=== PATIENT | male | born 2000 | race Caucasian/White ===

== ENCOUNTER 2018-11-22 23:34 | Emergency (ER) | payer SELFPAY ==
--- NOTE | 2018-11-23 00:35 | ER ---
Nurse's Notes [facility] Name: Jonathan Rodriguez Age: 18 yrs Sex: Male : 2000 Arrival Date: 11/22/2018 Time: 23:41 Bed 26 Private MD: Diagnosis: Acute serous otitis media Presentation: 11/22 23:48 Presenting complaint: Patient states: i woke up this 11 pm and i noticed i have right mg2 hearing loss. i also have very mild pain on that ear. Transition of care: patient was not received from another setting of care. Onset of symptoms was November 22, 2018 at 23:00. Risk Assessment: Do you want to hurt yourself or someone else? Patient reports no desire to harm self or others. Initial Sepsis Screen: Does the patient meet any 2 criteria? No. Patient's initial sepsis screen is negative. Does the patient have a suspected source of infection? No. Patient's initial sepsis screen is negative. Care prior to arrival: None. 23:48 Method Of Arrival: Ambulatory mg2 23:48 Acuity: BIANCA 4 mg2 Historical: - Allergies: 23:51 cillin family; mg2 - Home Meds: 23:51 None [Active]; mg2 - PMHx: 23:51 None; mg2 - PSHx: 23:51 None; mg2 - Immunization history:: Flu vaccine status is unknown. - Social history:: Smoking status: Patient uses tobacco products, smokes two packs cigarettes per day. Patient/guardian denies using alcohol, street drugs, IV drugs. - Ebola Screening: : No symptoms or risks identified at this time. Screenin:52 Abuse screen: Denies threats or abuse. Denies injuries from another. Nutritional mg2 screening: No deficits noted. Tuberculosis screening: No symptoms or risk factors identified. Fall Risk None identified. Assessment: 11/23 00:20 General: Appears in no apparent distress. Behavior is calm, cooperative, appropriate ad1 for age. Pain: Complains of pain in right ear Pain currently is 1 out of 10 on a pain scale. Neuro: No deficits noted. Level of Consciousness is Oriented to person, place, time. Cardiovascular: No deficits noted. Respiratory: No deficits noted. Airway is patent Respiratory effort is even, unlabored. Vital Signs: 11/22 23:52 BP 123 / 76; Pulse 72; Resp 18; Temp 97.9; Pulse Ox 100% on R/A; Height 5 ft. 10 in. mg2 (177.80 cm); Pain 1/10; ED Course: 23:41 Patient arrived in ED. cf2 23:50 Triage completed. mg2 23:52 Arm band placed on. [facility] 23:59 Ventura Ruiz [facility] 23:59 Alfonso Hernandez MD is Attending Physician. [facility] 11/23 01:00 No provider procedures requiring assistance completed. Patient did not have IV access ad1 during this emergency room visit. 01:01 Patient has correct armband on for positive identification. ad1 Administered Medications: No medications were administered Outcome: 00:33 Discharge ordered by . tevin 01:00 Discharged to home ad1 01:00 Condition: good 01:00 Discharge instructions given to patient, Instructed on discharge instructions, follow up and referral plans. Demonstrated understanding of instructions, follow-up care, medications, Prescriptions given X 1. 01:02 Patient left the ED. ad1 Signatures: Ventura Ruiz PA PA [facility] Phyllis Barroso RN RN ad1 Raj Mason RN RN mg2 Francisca Chapa cf2
--- NOTE | 2018-11-23 00:36 | EDPHYS ---
Physician Documentation [facility] Name: Jonathan Rodriguez Age: 18 yrs Sex: Male : 2000 Arrival Date: 11/22/2018 Time: 23:41 Bed 26 Private MD: ED Physician Alfonso Hernandez HPI: 11/23 00:30 This 18 yrs old Male presents to ER via Ambulatory with complaints of slight jmm loss of hearing in right ear. 00:30 The patient presents with hearing loss. Onset: The symptoms/episode began/occurred jmm today. Modifying factors: The symptoms are alleviated by nothing, the symptoms are aggravated by nothing. Associated signs and symptoms: Pertinent positives: cough, sinus trouble, Pertinent negatives: fever, vertigo. Historical: - Allergies: 11/22 23:51 cillin family; mg2 - Home Meds: 23:51 None [Active]; mg2 - PMHx: 23:51 None; mg2 - PSHx: 23:51 None; mg2 - Immunization history:: Flu vaccine status is unknown. - Social history:: Smoking status: Patient uses tobacco products, smokes two packs cigarettes per day. Patient/guardian denies using alcohol, street drugs, IV drugs. - Ebola Screening: : No symptoms or risks identified at this time. ROS: 11/23 00:30 Constitutional: Negative for fever, chills, and weight loss. jmm Cardiovascular: Negative for chest pain, palpitations, and edema, Respiratory: Negative for shortness of breath, cough, wheezing, and pleuritic chest pain, Abdomen/GI: Negative for abdominal pain, nausea, vomiting, diarrhea, and constipation, Neuro: Negative for headache, weakness, numbness, tingling, and seizure. ENT: Positive for hearing loss. All other systems are negative. Exam: 00:30 Constitutional: This is a well developed, well nourished patient who is awake, alert, jmm and in no acute distress. Head/Face: atraumatic. Eyes: EOMI, no conjunctival erythema appreciated 00:30 Neck: Trachea midline, Supple Chest/axilla: Normal chest wall appearance and motion. Cardiovascular: Regular rate and rhythm. No edema appreciated Respiratory: Normal respirations, no respiratory distress appreciated Abdomen/GI: Non distended, soft Back: Normal ROM Skin: General appearance color normal MS/ Extremity: Moves all extremities, no obvious deformities appreciated, no edema noted to the lower extremities Neuro: Awake and alert, normal gait Psych: Behavior is normal, Mood is normal, Patient is cooperative and pleasant 00:30 ENT: TM's: bulging, on the right, erythema, that is moderate, on the right. Vital Signs: 11/22 23:52 BP 123 / 76; Pulse 72; Resp 18; Temp 97.9; Pulse Ox 100% on R/A; Height 5 ft. 10 in. mg2 (177.80 cm); Pain /10; MDM: 11/23 00:32 Data reviewed: vital signs, nurses notes. Counseling: I had a detailed discussion with tevin the patient and/or guardian regarding: the historical points, exam findings, and any diagnostic results supporting the discharge/admit diagnosis, the need for outpatient follow up, to return to the emergency department if symptoms worsen or persist or if there are any questions or concerns that arise at home. ED course: Patient is alert and non toxic in appearance in the ED. Patient advised to follow up with pcp for reevaluation. Patient otherwise given strict return precautions. Patient understood and agrees with the plan of care. . 00:33 Patient medically screened. alejandro Administered Medications: No medications were administered Disposition: 11/23/18 00:33 Discharged to Home. Impression: Acute serous otitis media. - Condition is Stable. - Discharge Instructions: Otitis Media, Adult. - Prescriptions for Zithromax Z- Gideon 250 mg Oral Tablet - take 1 tablet by ORAL route as directed for 5 days Day 1 - take two (2) tablets one time. Day 2, 3, 4 , 5 take one (1) tablet once daily.; 6 tablet. - Medication Reconciliation Form, Thank You Letter, Antibiotic Education, Prescription Opioid Use form. - Follow up: Private Physician; When: 2 - 3 days; Reason: Recheck today's complaints, Continuance of care, Re-evaluation by your physician. Addendum: 11/25/2018 14:54 Co-signature as Attending Physician, Alfonso Hernandez MD. g s Signatures: Ventura Ruiz PA PA jmm DelToro, Anna RN RN ad1 Alfonso Hernandez MD MD gs Gardose, Michele RN RN mg2 Corrections: (The following items were deleted from the chart) 11/23 01:02 00:33 11/23/2018 00:33 Discharged to Home. Impression: Acute serous otitis media. ad1 Condition is Stable. Forms are Medication Reconciliation Form, Thank You Letter, Antibiotic Education, Prescription Opioid Use. Follow up: Private Physician; When: 2 - 3 days; Reason: Recheck today's complaints, Continuance of care, Re-evaluation by your physician. tevin
[2018-11-23 01:05] VITALS: BP 123/76; TEMP 97.9; O2SAT 100
== END 2018-11-23 01:02 | disposition home or self-care (01) ==
LOC: ER 23:34
DX: H65.00 Acute serous otitis media, unspecified ear (principal); F17.210 Nicotine dependence, cigarettes, uncomplicated; Z88.0 Allergy status to penicillin
CPT/HCPCS: 99282

== ENCOUNTER 2019-03-23 05:39 | Emergency (ER) | payer SELFPAY ==
[2019-03-23] MEDS ORDERED: HYDROCODONE/APAP 10/325 TAB ONE (06:27)
--- NOTE | 2019-03-23 08:19 | EDPHYS ---
Physician Documentation [facility] Name: Jonathan Rodriguez Age: 19 yrs Sex: Male : 2000 Arrival Date: 03/23/2019 Time: 05:41 Bed 18 Private MD: ED Physician Eriberto Gutierrez HPI: 03/23 06:22 This 19 yrs old Male presents to ER via Ambulatory with complaints of Penile jmm Pain - Swelling. 06:22 The patient presents with tenderness. Onset: The symptoms/episode began/occurred 1 jmm day(s) ago. Modifying factors: The symptoms are alleviated by nothing, the symptoms are aggravated by. Associated signs and symptoms: Pertinent negatives: dysuria, fever. This is a 19 year old male with no chronic medical conditions that presents to the ED with complaints of penile pain beginning approx 24 hours ago. Patient states he is able to urinate but complains of worsening pain to his distal penis. Patient states he has been unable to retract his foreskin since age 7. . Historical: - Allergies: 05:55 cillin family; 05:55 PENICILLINS; - Home Meds: 05:55 None [Active]; - PMHx: 05:55 None; - PSHx: 05:55 None; - Immunization history:: Adult Immunizations not up to date. - Coronavirus screen:: The patient has NOT traveled to [place], [place], or [place] in the past 14 days. - Social history:: Smoking status: Patient reports the use of cigarette tobacco products. - Ebola Screening: : Patient negative for fever greater than or equal to 101.5 degrees Fahrenheit, and additional compatible Ebola Virus Disease symptoms Patient denies exposure to infectious person. ROS: 06:22 Constitutional: Negative for fever, chills, and weight loss, Cardiovascular: Negative jmm for chest pain, palpitations, and edema, Respiratory: Negative for shortness of breath, cough, wheezing, and pleuritic chest pain. 06:22 : Positive for urinary symptoms. 06:22 All other systems are negative. Exam: 06:22 Constitutional: This is a well developed, well nourished patient who is awake, alert, jmm and in no acute distress. Head/Face: atraumatic. Eyes: EOMI, no conjunctival erythema appreciated ENT: Moist Mucus Membranes Neck: Trachea midline, Supple Chest/axilla: Normal chest wall appearance and motion. Cardiovascular: Regular rate and rhythm. No edema appreciated Respiratory: Normal respirations, no respiratory distress appreciated Abdomen/GI: Non distended, soft Back: Normal ROM Skin: General appearance color normal 06:22 MS/ Extremity: Moves all extremities, no obvious deformities appreciated, no edema noted to the lower extremities Neuro: Awake and alert, normal gait Psych: Behavior is normal, Mood is normal, Patient is cooperative and pleasant 06:22 : unable to retract foreskin due to pain, no erythema or purulent drainage appreciated. Vital Signs: 05:55 BP 141 / 121; Pulse 67; Resp 18; Temp 97.6; Pulse Ox 99% ; Weight 77.11 kg; Height 5 wh ft. 10 in. (177.80 cm); Pain 6/10; 07:00 BP 136 / 72; Pulse 66; Resp 18; Temp 97.6; Pulse Ox 100% on R/A; Pain 6/10; sg 05:55 Body Mass Index 24.39 (77.11 kg, 177.80 cm) MDM: 06:13 Patient medically screened. [facility] 08:17 Data reviewed: vital signs, nurses notes. Counseling: I had a detailed discussion with tevin the patient and/or guardian regarding: the historical points, exam findings, and any diagnostic results supporting the discharge/admit diagnosis, the need for outpatient follow up, to return to the emergency department if symptoms worsen or persist or if there are any questions or concerns that arise at home. ED course: Pain relieved in the ED.PE findings consistent with phimosis. This appears to be a chronic process. Patient is able to urinate without difficulty. Patient advised to follow up with urology for further evaluation. Patient is otherwise given strict return precautions. patient understood and agrees with the plan of care.. 03/23 06:43 Order name: Glucose, Ancillary Testing; Complete Time: 06:47 EDMS 03/23 06:20 Order name: Urine Dipstick-Ancillary (obtain specimen); Complete Time: 07:38 [facility] 03/23 06:20 Order name: Finger Stick; Complete Time: 06:31 [facility] Administered Medications: 06:32 Drug: [place] 10 mg-325 mg 1 tabs Route: PO; 08:22 Follow up: Response: No adverse reaction; Pain is decreased sg Disposition: 03/23/19 08:18 Discharged to Home. Impression: Phimosis. - Condition is Stable. - Discharge Instructions: Phimosis, Pediatric. - Prescriptions for nystatin 100,000 unit/gram Topical ointment - apply 1 application by TOPICAL route 2 times per day; 1 tube. Ultracet 37.5- 325 mg Oral Tablet - take 1 tablet by ORAL route every 6 hours - for up to 5 days; do not exceed 8 tablets per day.; 12 tablet. - School release form, Work release form, Medication Reconciliation Form, Thank You Letter, Antibiotic Education, Prescription Opioid Use form. - Follow up: Supriya Olivia MD; When: 2 - 3 days; Reason: Recheck today's complaints, Continuance of care, Re-evaluation by your physician. Addendum: 03/26/2019 07:03 Co-signature as Attending Physician, Eriberto Gutierrez MD. r n Signatures: Dispatcher [employer] Magnus Box RN RN sg Mickail, Joel, PA PA jmm Nieto, Roman, MD MD rn Habalo, Winsy Corrections: (The following items were deleted from the chart) 03/23 08:58 08:18 03/23/2019 08:18 Discharged to Home. Impression: Phimosis. Condition is Stable. sg Forms are Medication Reconciliation Form, Thank You Letter, Antibiotic Education, Prescription Opioid Use. Follow up: Supriya Olivia; When: 2 - 3 days; Reason: Recheck today's complaints, Continuance of care, Re-evaluation by your physician. tevin
--- NOTE | 2019-03-23 08:19 | ER ---
Nurse's Notes [facility] Name: Jonathan Rodriguez Age: 19 yrs Sex: Male : 2000 Arrival Date: 03/23/2019 Time: 05:41 Bed 18 Private MD: Diagnosis: Phimosis Presentation: 03/23 05:53 Presenting complaint: Patient states: Penile pain that started yesterday accompanied by urinary frequency. Pt states Hx of Phimosis when he was younger. Transition of care: patient was not received from another setting of care. Onset of symptoms was March 23, 2019. Risk Assessment: Do you want to hurt yourself or someone else? Patient reports no desire to harm self or others. Initial Sepsis Screen: Does the patient meet any 2 criteria? No. Patient's initial sepsis screen is negative. Does the patient have a suspected source of infection? Yes: Dysuria/Frequency/Urgency/UTI. Care prior to arrival: None. 05:53 Method Of Arrival: Ambulatory 05:53 Acuity: BIANCA 4 Historical: - Allergies: 05:55 cillin family; 05:55 PENICILLINS; - Home Meds: 05:55 None [Active]; - PMHx: 05:55 None; - PSHx: 05:55 None; - Immunization history:: Adult Immunizations not up to date. - Coronavirus screen:: The patient has NOT traveled to [place], [place], or [place] in the past 14 days. - Social history:: Smoking status: Patient reports the use of cigarette tobacco products. - Ebola Screening: : Patient negative for fever greater than or equal to 101.5 degrees Fahrenheit, and additional compatible Ebola Virus Disease symptoms Patient denies exposure to infectious person. Screenin:56 Abuse screen: Denies threats or abuse. Denies injuries from another. Nutritional screening: No deficits noted. Tuberculosis screening: No symptoms or risk factors identified. Fall Risk None identified. Assessment: 05:56 General: Appears in no apparent distress. Behavior is calm, cooperative, appropriate for age. Pain: Complains of pain in penile pain. Neuro: Level of Consciousness is awake, alert, obeys commands, Oriented to person, place, time, situation, Appropriate for age. Cardiovascular: Capillary refill < 3 seconds. Respiratory: Airway is patent Respiratory effort is even, unlabored, Respiratory pattern is regular, symmetrical. GI: Abdomen is flat, non-distended. : Swelling noted. EENT: No signs and/or symptoms were reported regarding the EENT system. Derm: Skin is intact, is healthy with good turgor, Skin is pink, warm \T\ dry. normal. Musculoskeletal: Circulation, motion, and sensation intact. 07:30 Reassessment: Patient appears in no apparent distress at this time. pt supine in bed, sg srx1, bed in low and locked position, resp even and unlabored, snoring at this time, awaiting dispo orders. Vital Signs: 05:55 BP 141 / 121; Pulse 67; Resp 18; Temp 97.6; Pulse Ox 99% ; Weight 77.11 kg; Height 5 wh ft. 10 in. (177.80 cm); Pain 6/10; 07:00 BP 136 / 72; Pulse 66; Resp 18; Temp 97.6; Pulse Ox 100% on R/A; Pain 6/10; sg 05:55 Body Mass Index 24.39 (77.11 kg, 177.80 cm) ED Course: 05:41 Patient arrived in ED. ds1 05:45 Flaca Pascual is Primary Nurse. 05:54 Triage completed. 05:56 Patient has correct armband on for positive identification. Bed in low position. Call light in reach. Side rails up X 1. Pulse ox on. NIBP on. 05:56 Arm band placed on right wrist. 06:09 Ventura Ruiz PA is PHCP. [facility] 06:09 Eriberto Gutierrez MD is Attending Physician. [facility] 06:58 Primary Nurse role handed off by Flaca Pascual 06:58 Magnus Drummond, MARIPOSA is Primary Nurse. 07:00 No provider procedures requiring assistance completed. 08:18 Supriya Olivia MD is Referral Physician. [facility] Administered Medications: 06:32 Drug: [place] 10 mg-325 mg 1 tabs Route: PO; 08:22 Follow up: Response: No adverse reaction; Pain is decreased Outcome: 08:18 Discharge ordered by . [facility] 08:58 Patient left the ED. Signatures: Magnus Drummond RN MARIPOSA Ventura Ruiz PA PA m Damico, Lisa ds1 Habalo, Winsy wh
[2019-03-23 09:05] VITALS: BP 136/72; TEMP 97.6; O2SAT 100
== END 2019-03-23 08:58 | disposition home or self-care (01) ==
LOC: ER 05:39
DX: N47.1 Phimosis (principal); F17.210 Nicotine dependence, cigarettes, uncomplicated; Z88.0 Allergy status to penicillin
CPT/HCPCS: 82947; 99283

== ENCOUNTER 2019-04-30 22:42 | Emergency (ER) | payer SELFPAY ==
--- OUTSIDE RECORDS SUMMARY | 2019-04-30 22:44 | XMS REPORT | Summary of Care ---
:2000 Author Organization [facility] - Health Address [address] [place] [address] Care Team Providers Name Role Phone Pcp, Patient Does Not Have A Primary Care Provider Encounter Details Date Type Department Care Team Description 03/24/2019 Orders Only [facility] Doctor Unassigned, No [address] [facility] [place] [address] [address] [place] [address] Allergies Active Allergy Reactions Severity Noted Date Comments Amoxicillin Anaphylaxis 10/08/2018 Penicillin Anaphylaxis 10/08/2018 documented as of this encounter (statuses as of 03/24/2019) Medications Medication Sig Dispensed Refills Start Date End Date Status traMADol (ULTRAM) 50 Take 1 tablet by 30 tablet 0 10/08/2018 Active mg tabletIndications: mouth every 6 Injury by nail, (six) hours as initial encounter, needed for Pain Puncture wound of (scale 7-10). right hand without foreign body, initial encounter documented as of this encounter (statuses as of 03/24/2019) Active Problems Not on filedocumented as of this encounter (statuses as of 03/24/2019) Immunizations Name Administration Dates Next Due Td 10/08/2018 documented as of this encounter Social History Tobacco Use Types Packs/Day Years Used Date Never Assessed Sex Assigned at Date Recorded Not on file Job Start Date Occupation Industry Not on file Not on file Not on file Travel History Travel Start Travel End No recent travel history available. documented as of this encounter Last Filed Vital Signs Not on filedocumented in this encounter Plan of Treatment Health Maintenance Due Date Last Done Comments MENINGOCOCCAL B VACCINES (1 of 2 - 2008 Risk Bexsero 2-dose series) VARICELLA VACCINES (1 of 2 - 13+ 2011 2-dose series) HPV VACCINES (1 - Male 3-dose 2013 series) DTaP,Tdap,and Td Vaccines (1 - 10/09/2018 10/08/2018 Tdap) INFLUENZA VACCINE (#1) 2018 MENINGOCOCCAL VACCINE Aged Out No longer eligible based on patient's age to complete this topic PNEUMOCOCCAL 0-64 YEARS COMBINED Aged Out No longer eligible based on SERIES patient's age to complete this topic documented as of this encounter Procedures Procedure Name Priority Date/Time Associated Diagnosis Comments CONSENT/REFUSAL FOR Routine 03/24/2019 4:22 PM 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
--- OUTSIDE RECORDS SUMMARY | 2019-04-30 22:44 | XMS REPORT | Summary of Care ---
:2000 Author Organization [facility] - [facility] Address [address] [place] [id number] Care Team Providers Name Role Phone Pcp, Patient Does Not Have A Primary Care Provider Reason for Visit Reason Comments Hand Pain right Auth/Cert Status Reason Specialty Diagnoses / Referred By Referred To Procedures Contact Contact [facility] [address] [place] [address] [place] [address] Encounter Details Date Type Department Care Team Description 10/08/2018 Emergency [facility]-Emergency Mina Saunders DO Injury by nail, initial encounter (Primary Dx); Department [address] [place] [address]. Puncture wound of right hand without foreign body, initial encounter [address] [place] [address] [address] [place] [address] [place] [address] [phone] Allergies Active Allergy Reactions Severity Noted Date Comments Amoxicillin Anaphylaxis 10/08/2018 Penicillin Anaphylaxis 10/08/2018 documented as of this encounter (statuses as of 10/08/2018) Medications Medication Sig Dispensed Refills Start Date End Date Status clindamycin 150 mg Take 2 56 capsule 0 10/08/2018 10/15/2018 Active capsuleIndications capsules by : Injury by nail, mouth 4 (four) initial encounter, times daily Puncture wound of for 7 days. right hand without foreign body, initial encounter traMADol (ULTRAM) Take 1 tablet 30 tablet 0 10/08/2018 Active 50 mg by mouth every tabletIndications: 6 (six) hours Injury by nail, as needed for initial encounter, Pain (scale Puncture wound of 7-10). right hand without foreign body, initial encounter traMADol (ULTRAM) Take 1 tablet 30 tablet 0 10/08/2018 10/08/2018 Discontinued 50 mg by mouth every tabletIndications: 6 (six) hours Injury by nail, as needed for initial encounter, Pain (scale Puncture wound of 7-10) for up right hand without to 10 days. foreign body, initial encounter documented as of this encounter (statuses as of 10/08/2018) Active Problems Not on filedocumented as of this encounter (statuses as of 10/08/2018) Immunizations Name Administration Dates Next Due Td [...] of this encounter Last Filed Vital Signs Vital Sign Reading Time Taken Comments Blood Pressure 123/52 10/08/2018 12:43 PM CDT Pulse 86 10/08/2018 12:43 PM CDT Temperature 37 C (98.6 F) 10/08/2018 11:10 AM CDT Respiratory Rate 16 10/08/2018 12:43 PM CDT Oxygen Saturation 99% 10/08/2018 12:43 PM CDT Inhaled Oxygen Concentration - - Weight 77.1 kg (170 lb) 10/08/2018 11:10 AM CDT Height 175.3 cm (5' 9") 10/08/2018 11:10 AM CDT Body Mass Index 25.1 10/08/2018 11:10 AM CDT documented in this encounter Discharge Instructions Mina Baumann DO - 10/08/2018 DIAGNOSIS Diagnoses that have been ruled out: None Diagnoses that are still under consideration: None Final diagnoses: Injury by nail, initial encounter Puncture wound of right hand without foreign body, initial encounter NO LIFE-THREATENING FINDINGS ON TODAY'S EXAM. PROCEDURES IN THE ER TODAY: No orders of the defined types were placed in this encounter. MEDICATIONS ADMINISTERED IN THE ER TODAY AND DISCHARGE MEDICATIONS: Orders Placed This Encounter Medications tetanus-diphtheria toxoids (TDVAX) 2-2 Lf unit/0.5 mL injection 0.5 mL FOLLOW-UP RECOMMENDATIONS: RECOMMEND FOLLOW-UP WITH A PRIMARY CARE PROVIDER OR SPECIALIST IN 2-5 DAYS, ESPECIALLY IF NO IMPROVEMENT IN SYMPTOMS. MAY FOLLOW-UP WITH A PROVIDER OF YOUR CHOICE, SUCH : 1. A PHYSICIAN OF YOUR CHOICE 2. [facility], . LOCATIONS IN [facility] 3. [facility], [address] [place], [place]; OR, IF YOU WISH TO FOLLOW-UP WITHIN THE [facility], MAY TRY THESE OPTIONS (CLINIC APPOINTMENTS AVAILABLE ON [id number] BASIS): 1. SCHEDULE AN APPOINTMENT ONLINE AT [email or web address] 2. OR CALL THE [facility]ESS [facility]ENTER AT OR 3. OR CALL YOUR [facility] PHYSICIAN'S OFFICE DIRECTLY IF YOU ARE ALREADY AN ESTABLISHED [facility] PATIENT. RETURN TO ER FOR WORSENING OF SYMPTOMS. AttachmentsThe following attachments cannot be sent through Care Everywhere.Puncture Wound (General) (Persian)documented in this encounter Plan of Treatment Health Maintenance Due Date Last Done Comments MENINGOCOCCAL B VACCINES (1 of 2 - 2008 Risk Bexsero 2-dose series) VARICELLA VACCINES (1 of 2 - 13+ 2011 2-dose series) HPV VACCINES (1 - Male 3-dose 2013 series) DTaP,Tdap,and Td Vaccines (1 - 2017 Tdap) INFLUENZA VACCINE 10/26/2018 MENINGOCOCCAL VACCINE Aged Out No longer eligible based on patient's age to complete this topic PNEUMOCOCCAL 0-64 YEARS COMBINED Aged Out No longer eligible based on SERIES patient's age to complete this topic documented as of this encounter Procedures Procedure Name Priority Date/Time Associated Diagnosis Comments NOTICE OF PRIVACY Routine 10/08/2018 10:40 AM CDT PRACTICES documented in this encounter Results Not on filedocumented in this encounter Visit Diagnoses Diagnosis Injury by nail, initial encounter - Primary Puncture wound of right hand without foreign body, initial encounter documented in this encounter Administered Medications Medication Order MAR Action Action Date Dose Rate Site tetanus-diphtheria Given 10/08/2018 12:38 PM 0.5 mL Right Deltoid-IM toxoids (TDVAX) 2-2 Lf CDT unit/0.5 mL injection 0.5 mL 0.5 mL, Intramuscular, ONCE, 1 dose, 10/08/18 at 1200, Routine documented in this encounter
--- OUTSIDE RECORDS SUMMARY | 2019-04-30 22:44 | XMS REPORT | Summary of Care ---
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 documented as of this encounter (statuses as of 03/24/2019) Active Problems No known active problemsdocumented as of this encounter (statuses as of 2019) Immunizations Name Administration Dates Next Due Td [...] Sign Reading Time Taken Comments Blood Pressure 127/79 03/24/2019 4:50 PM HORTICULTURAL THERAPIST Pulse 71 03/24/2019 4:50 PM HORTICULTURAL THERAPIST Temperature 36.9 C (98.5 F) 03/24/2019 4:50 PM HORTICULTURAL THERAPIST Respiratory Rate 18 03/24/2019 4:50 PM HORTICULTURAL THERAPIST Oxygen Saturation 99% 03/24/2019 4:50 PM HORTICULTURAL THERAPIST Inhaled Oxygen Concentration - - Weight 81.5 kg (179 lb 11.2 oz) 03/24/2019 4:50 PM HORTICULTURAL THERAPIST Height - - Body Mass Index - - documented in this encounter Discharge Instructions InstructionsYoly Tejada NP - 03/24/2019Diagnosis: Urethritis Phimosis Prescription for doxycycline Follow up with urology if able No sex until asymptomatic and cultures negative Continue steroid cream prescribed by OSH AttachmentsThe following attachments cannot be sent through Care Everywhere.Phimosis (Arabic)Urethritis in Men (Arabic)documented in this encounter Plan of Treatment Name Type Priority Associated Diagnoses Date/Time URINE CULTURE LAB STAT Dysuria 03/24/2019 6:49 PM HORTICULTURAL THERAPIST GC & CHLAMYDIA AMPLIFIED LAB STAT Dysuria 03/24/2019 6:49 PM HORTICULTURAL THERAPIST ASSAY Name Type Priority Associated Diagnoses Order Schedule URINE CULTURE LAB Routine Dysuria ONCE for 1 Occurrences starting 03/24/2019 until 03/24/2019 GC & CHLAMYDIA AMPLIFIED LAB Routine Dysuria ONCE for 1 Occurrences ASSAY starting 03/24/2019 until 03/24/2019 Health Maintenance Due Date Last Done Comments VARICELLA VACCINES (1 of 2 - 1999 2-dose childhood series) MENINGOCOCCAL B VACCINES (1 of 2 - 2008 Risk Bexsero 2-dose series) DTaP,Tdap,and Td Vaccines (1 - 2009 10/08/2018 Tdap) HPV VACCINES (1 - Male 2-dose 2009 series) WELL CARE VISIT: 12-21 YEARS 2010 (yearly) INFLUENZA VACCINE (#1) 2018 MENINGOCOCCAL VACCINE Aged Out No longer eligible based on patient's age to complete this topic PNEUMOCOCCAL 0-64 YEARS COMBINED Aged Out No longer eligible based on SERIES patient's age to complete this topic documented as of this encounter Procedures Procedure Name Priority Date/Time Associated Comments Diagnosis URINALYSIS STAT 03/24/2019 6:49 PM Dysuria Results for this HORTICULTURAL THERAPIST procedure are in the results section. NOTICE OF PRIVACY Routine 03/24/2019 4:26 PM PRACTICES HORTICULTURAL THERAPIST documented in this encounter Results URINALYSIS (03/24/2019 6:49 PM HORTICULTURAL THERAPIST) APPEARANCE Clear Clear [facility] COLOR Yellow Yellow [facility] PH 5.0 4.8 - 8.0 [facility] SP GRAVITY 1.021 1.003 - 1.030 [facility] GLU U QUAL Normal Normal [facility] BLOOD Negative Negative [facility] KETONES Negative Negative [facility] PROTEIN Negative Negative [facility] UROBILIN Normal Normal [facility] BILIRUBIN Negative Negative [facility] NITRITE Negative Negative [facility] LEUK ASHLEIGH 500/uL (A) Negative [facility] RBC/HPF 2 0 - 3 HPF [facility] WBC/HPF 38 (H) 0 - 5 HPF [facility] BACTERIA Negative Negative [facility] MUCOUS Slight (A) Negative LPF [facility] SQ EPITH 1 HPF [facility] Specimen Urine - URINE, CLEAN CATCH Performing Organization Address City/State/Zipcode Phone Number [facility] CLIA: [id number], [address] [place] [address] documented in this encounter Visit Diagnoses Diagnosis Dysuria - Primary Phimosis of penis Urethritis, nonspecific Unspecified nongonococcal urethritis (PATRICIA) documented in this encounter Administered Medications Medication Order MAR Action Action Date Dose Rate Site azithromycin (ZITHROMAX) tablet Given 03/24/2019 6:55 PM HORTICULTURAL THERAPIST 1,000 mg 1,000 mg 1,000 mg, Oral, ONCE, 1 dose, 03/24/19 at 1930, ROGELIO, Reason for Anti-Infective: Documented Infection, Documented Infection Site: Urine, Duration of Therapy: 7 days doxycycline (Vibramycin) capsule 100 mg Given 03/24/2019 6:55 PM HORTICULTURAL THERAPIST 100 mg 100 mg, Oral, ONCE, 1 dose, 03/24/19 at 1930, ROGELIO, Reason for Anti-Infective: Empiric Therapy for Suspected Infection, Empiric Therapy Site: Urine, Duration of therapy: 72 hours metroNIDAZOLE (FLAGYL) tablet 2,000 mg Given 03/24/2019 6:56 PM HORTICULTURAL THERAPIST 2,000 mg 2,000 mg, Oral, ONCE NOW, 1 dose, 03/24/19 at 1930, Routine, Reason for Anti-Infective: Empiric Therapy for Suspected Infection, Empiric Therapy Site: Urine, Duration of therapy: 72 hours documented in this encounter Insurance Payer Benefit Plan / Subscriber ID Effective Phone Address Type Group Dates MEDICAID MEDICAID PENDING 2019-[address] [place] [address] documented as of this encounter
--- OUTSIDE RECORDS SUMMARY | 2019-04-30 22:44 | XMS REPORT ---
:2000 [facility] Address [address] [place] [address] Care Team Providers Name Role Phone Unavailable Unavailable Unavailable Problems This patient has no known problems. Allergies, Adverse Reactions, Alerts This patient has no known allergies or adverse reactions. Medications This patient has no known medications.
[2019-04-30] MEDS ORDERED: IBUPROFEN 200 MG TAB PO ONE (23:19)
[2019-04-30] MEDS ORDERED: IBUPROFEN 400 MG TAB ONE (23:20)
--- NOTE | 2019-04-30 23:44 | ER ---
Nurse's Notes [facility] Name: Jonathan Rodriguez Age: 19 yrs Sex: Male : 2000 Arrival Date: 04/30/2019 Time: 22:42 Bed 4 Private MD: Diagnosis: Influenza due to certain identified influenza viruses Presentation: 04/29 23:00 Chief complaint: Patient states: i have fever and, cough and body aches for 2 days. mg2 Coronavirus screen: The patient has NOT traveled to a country currently being monitored by the [facility] within the last 14 days. Proceed with normal triage procedures. The patient has NOT had contact with any known and/or suspected case of coronavirus. Proceed with normal triage procedures. Ebola Screen: No symptoms or risks identified at this time. Initial Sepsis Screen: Does the patient meet any 2 criteria? No. Patient's initial sepsis screen is negative. Does the patient have a suspected source of infection? No. Patient's initial sepsis screen is negative. Risk Assessment: Do you want to hurt yourself or someone else? Patient reports no desire to harm self or others. 23:00 Method Of Arrival: Ambulatory mg2 23:00 Acuity: BIANCA 4 mg2 23:00 Onset of symptoms was April 28, 2019. mg2 Historical: - Allergies: 23:22 cillin family; mg2 23:22 PENICILLINS; mg2 - Home Meds: 23:22 None [Active]; mg2 - PMHx: 23:22 None; mg2 - PSHx: 23:22 None; mg2 - Immunization history:: Flu vaccine is not up to date. - Social history:: Smoking status: Patient denies any tobacco usage or history of. Patient/guardian denies using alcohol, street drugs, IV drugs. Screenin:29 Abuse screen: Denies threats or abuse. Denies injuries from another. Nutritional mg2 screening: No deficits noted. Tuberculosis screening: No symptoms or risk factors identified. Fall Risk None identified. Assessment: 23:29 General: Appears in no apparent distress. comfortable, Behavior is calm, cooperative. mg2 Pain: Complains of pain in whole body. Neuro: Level of Consciousness is awake, alert, obeys commands, Oriented to person, place, time, situation. Cardiovascular: Capillary refill < 3 seconds Patient's skin is warm and dry. Respiratory: Airway is patent Respiratory effort is even, unlabored, Respiratory pattern is regular, symmetrical. Respiratory: Reports cough that is. GI: No signs and/or symptoms were reported involving the gastrointestinal system. : No signs and/or symptoms were reported regarding the genitourinary system. EENT: No signs and/or symptoms were reported regarding the EENT system. Derm: Skin is intact, is healthy with good turgor, Skin is pink, warm \T\ dry. normal. Musculoskeletal: Circulation, motion, and sensation intact. Capillary refill < 3 seconds. Vital Signs: 23:00 BP 108 / 61; Pulse 110; Resp 18; Temp 102.1(TE); Pulse Ox 100% on R/A; Weight 81.65 kg; mg2 Height 5 ft. 10 in. (177.80 cm); 04/30 00:04 BP 110 / 65; Pulse 108; Resp 18; Temp 102; Pulse Ox 100% on R/A; mg2 04/29 23:00 Body Mass Index 25.83 (81.65 kg, 177.80 cm) mg2 ED Course: 04/29 22:42 Patient arrived in ED. cl3 22:43 Keith Hathaway FNP-C [facility] la1 22:43 Claudio Mendenhall MD is Attending Physician. la1 23:11 Raj Mason RN is Primary Nurse. mg2 23:21 Triage completed. mg2 23:23 Arm band placed on. mg2 23:24 No provider procedures requiring assistance completed. Flu and/or RSV swab sent to lab. mg2 Patient did not have IV access during this emergency room visit. 23:29 Patient has correct armband on for positive identification. mg2 Administered Medications: 23:18 Drug: Ibuprofen 600 mg Route: PO; mg2 04/30 00:03 Follow up: Response: No adverse reaction mg2 00:03 Drug: Tylenol 650 mg Route: PO; mg2 00:03 Follow up: Response: No adverse reaction; Medication administered at discharge. mg2 Outcome: 04/29 23:44 Discharge ordered by . la1 04/30 00:04 Discharged to home ambulatory, with family. mg2 Condition: good Discharge instructions given to patient, family, Instructed on Demonstrated understanding of instructions, follow-up care. 00:05 Patient left the ED. mg2 Signatures: Keith Hathaway FNP-C YARD SPECIALIST-Cla1 Gardose, Raj, RN RN mg2 Remberto, Charde cl3
--- NOTE | 2019-04-30 23:45 | EDPHYS ---
Physician Documentation [facility] Name: Jonathan Rodriguez Age: 19 yrs Sex: Male : 2000 Arrival Date: 04/30/2019 Time: 22:42 Bed 4 Private MD: ED Physician Claudio Mendenhall HPI: 04/29 23:28 This 19 yrs old Male presents to ER via Ambulatory with complaints of Flu la1 Symptoms. 23:28 The patient or guardian reports cough, flu symptoms. Onset: The symptoms/episode la1 began/occurred 3 day(s) ago. Severity of symptoms: At their worst the symptoms were mild. Modifying factors: The symptoms are alleviated by nothing, the symptoms are aggravated by nothing. Associated signs and symptoms: Pertinent positives: fever. Historical: - Allergies: 23:22 cillin family; mg2 23:22 PENICILLINS; mg2 - Home Meds: 23:22 None [Active]; mg2 - PMHx: 23:22 None; mg2 - PSHx: 23:22 None; mg2 - Immunization history:: Flu vaccine is not up to date. - Social history:: Smoking status: Patient denies any tobacco usage or history of. Patient/guardian denies using alcohol, street drugs, IV drugs. ROS: 23:28 Eyes: Negative for injury, pain, redness, and discharge. la1 23:28 ENT: Negative for injury, pain, and discharge, Neck: Negative for injury, pain, and swelling, Cardiovascular: Negative for chest pain, palpitations, and edema, Respiratory: Negative for shortness of breath, cough, wheezing, and pleuritic chest pain, Abdomen/GI: Negative for abdominal pain, nausea, vomiting, diarrhea, and constipation, Back: Negative for injury and pain, : Negative for injury, bleeding, discharge, and swelling, MS/Extremity: Negative for injury and deformity, Skin: Negative for injury, rash, and discoloration, Neuro: Negative for headache, weakness, numbness, tingling, and seizure. 23:28 Constitutional: Positive for fever, malaise. Exam: 23:29 Constitutional: This is a well developed, well nourished patient who is awake, alert, la1 and in no acute distress. Head/Face: Normocephalic, atraumatic. Eyes: Pupils equal round and reactive to light, extra-ocular motions intact. Lids and lashes normal. Conjunctiva and sclera are non-icteric and not injected. Cornea within normal limits. Periorbital areas with no swelling, redness, or edema. ENT: Nares patent. No nasal discharge, no septal abnormalities noted. Tympanic membranes are normal and external auditory canals are clear. Oropharynx with no redness, swelling, or masses, exudates, or evidence of obstruction, uvula midline. Mucous membranes moist. Neck: Trachea midline, no thyromegaly or masses palpated, and no cervical lymphadenopathy. Supple, full range of motion without nuchal rigidity, or vertebral point tenderness. No Meningismus. Chest/axilla: Normal chest wall appearance and motion. Nontender with no deformity. No lesions are appreciated. Cardiovascular: Regular rate and rhythm with a normal S1 and S2. No gallops, murmurs, or rubs. Normal PMI, no JVD. No pulse deficits. Respiratory: Lungs have equal breath sounds bilaterally, clear to auscultation Abdomen/GI: Soft, non-tender, with normal bowel sounds. No distension or tympany. No guarding or rebound. No evidence of tenderness throughout. Skin: Warm, dry with normal turgor. Normal color with no rashes, no lesions, and no evidence of cellulitis. MS/ Extremity: Pulses equal, no cyanosis. Neurovascular intact. Full, normal range of motion. Vital Signs: 23:00 BP 108 / 61; Pulse 110; Resp 18; Temp 102.1(TE); Pulse Ox 100% on R/A; Weight 81.65 kg; mg2 Height 5 ft. 10 in. (177.80 cm); 04/30 00:04 BP 110 / 65; Pulse 108; Resp 18; Temp 102; Pulse Ox 100% on R/A; mg2 04/29 23:00 Body Mass Index 25.83 (81.65 kg, 177.80 cm) mg2 MDM: 04/29 23:29 Patient medically screened. la1 23:43 Data reviewed: vital signs, nurses notes, lab test result(s), and as a result, I will la1 discharge patient. Data interpreted: Pulse oximetry: on room air is 100 %. Interpretation: normal. Counseling: I had a detailed discussion with the patient and/or guardian regarding: the historical points, exam findings, and any diagnostic results supporting the discharge/admit diagnosis, lab results, the need for outpatient follow up, a family practitioner, to return to the emergency department if symptoms worsen or persist or if there are any questions or concerns that arise at home. 04/29 23:06 Order name: Flu; Complete Time: 23:40 la1 Administered Medications: 23:18 Drug: Ibuprofen 600 mg Route: PO; mg2 04/30 00:03 Follow up: Response: No adverse reaction mg2 00:03 Drug: Tylenol 650 mg Route: PO; mg2 00:03 Follow up: Response: No adverse reaction; Medication administered at discharge. mg2 Disposition: 02:27 Co-signature as Attending Physician, Claudio Mendenhall MD I agree with the assessment and tw4 plan of care. Disposition: 04/30/19 23:44 Discharged to Home. Impression: Influenza due to certain identified influenza viruses. - Condition is Stable. - Discharge Instructions: Fever, Adult, Influenza, Adult. - Medication Reconciliation Form, Thank You Letter, Work release form form. - Follow up: Private Physician; When: 2 - 3 days; Reason: Recheck today's complaints, Re-evaluation by your physician. - Problem is new. - Symptoms have improved. Signatures: Dispatcher [employer] EDMS Keith Hathaway, STATISTICAL CLERK-C STATISTICAL CLERK-Cla1 Claudio Mendenhall MD MD tw4 Raj Mason RN RN mg2 Corrections: (The following items were deleted from the chart) 00:05 03 23:44 04/30/2019 23:44 Discharged to Home. Impression: Influenza due to certain mg2 identified influenza viruses. Condition is Stable. Forms are Medication Reconciliation Form, Thank You Letter, Antibiotic Education, Prescription Opioid Use. Follow up: Private Physician; When: 2 - 3 days; Reason: Recheck today's complaints, Re-evaluation by your physician. Problem is new. Symptoms have improved. la1
[2019-04-30] MEDS ORDERED: ACETAMINOPHEN 325 MG TABLET ONE (23:59)
[2019-05-01 00:43] VITALS: O2SAT 100
[2019-05-01 00:44] VITALS: BP 110/65; TEMP 102
== END 2019-05-01 00:05 | disposition home or self-care (01) ==
LOC: ER 22:42
DX: J10.89 Influenza due to other identified influenza virus with other manifestations (principal); Z88.0 Allergy status to penicillin
CPT/HCPCS: 87804; 99283

== ENCOUNTER 2019-09-12 18:31 | Emergency (ER) | payer SELFPAY ==
--- NOTE | 2019-09-12 20:07 | EDPHYS ---
Physician Documentation [facility] Name: Jonathan Rodriguez Age: 19 yrs Sex: Male : 2000 Arrival Date: 09/12/2019 Time: 18:37 Bed 12 Private MD: ED Physician Beto Harley HPI: 09/11 19:59 This 19 yrs old Male presents to ER via Ambulatory with complaints of mh7 Toothache. 19:59 The patient presents with pain. The problem is located in the left lower tooth. mh7 20:00 Onset: The symptoms/episode began/occurred 3 day(s) ago. Duration: The symptoms are mh7 chronic, for 3 year(s). Modifying factors: The symptoms are alleviated by nothing, the symptoms are aggravated by nothing. Associated signs and symptoms: Pertinent negatives: anorexia, chills, dysphagia, fever, inability to eat, nausea, redness in area, swelling, vomiting. Severity of symptoms: At their worst the symptoms were moderate, 2 day(s) ago, in the emergency department the symptoms have improved, moderately. Patient states that he has been having pain in his left lower tooth for 3 years. He used pliers 3 days ago to try to remove tooth. He has had increased pain since then.. Historical: - Allergies: 18:46 cillin family; sv 18:46 PENICILLINS; sv - PSHx: 18:46 None; sv - Immunization history:: Adult Immunizations up to date. - Social history:: Smoking status: Patient reports the use of cigarette tobacco products, smokes one-half pack cigarettes per day. ROS: 20:00 Constitutional: Negative for fever, chills, and weight loss, Eyes: Negative for injury, mh7 pain, redness, and discharge, Neck: Negative for injury, pain, and swelling, Cardiovascular: Negative for chest pain, palpitations, and edema. 20:17 Respiratory: Negative for shortness of breath, cough, wheezing, and pleuritic chest mh7 pain, Abdomen/GI: Negative for abdominal pain, nausea, vomiting, diarrhea, and constipation, Back: Negative for injury and pain, : Negative for injury, bleeding, discharge, and swelling, MS/Extremity: Negative for injury and deformity, Skin: Negative for injury, rash, and discoloration, Neuro: Negative for headache, weakness, numbness, tingling, and seizure, Psych: Negative for depression, anxiety, suicide ideation, homicidal ideation, and hallucinations, Allergy/Immunology: Negative for hives, rash, and allergies, Endocrine: Negative for neck swelling, polydipsia, polyuria, polyphagia, and marked weight changes, Hematologic/Lymphatic: Negative for swollen nodes, abnormal bleeding, and unusual bruising. Exam: 20:17 Constitutional: This is a well developed, well nourished patient who is awake, alert, mh7 and in no acute distress. Head/Face: Normocephalic, atraumatic. 20:17 Neck: Trachea midline, no thyromegaly or masses palpated, and no cervical lymphadenopathy. Supple, full range of motion without nuchal rigidity, or vertebral point tenderness. No Meningismus. Chest/axilla: Normal chest wall appearance and motion. Nontender with no deformity. No lesions are appreciated. Cardiovascular: Regular rate and rhythm with a normal S1 and S2. No gallops, murmurs, or rubs. Normal PMI, no JVD. No pulse deficits. Respiratory: Lungs have equal breath sounds bilaterally, clear to auscultation and percussion. No rales, rhonchi or wheezes noted. No increased work of breathing, no retractions or nasal flaring. Abdomen/GI: Soft, non-tender, with normal bowel sounds. No distension or tympany. No guarding or rebound. No evidence of tenderness throughout. Skin: Warm, dry with normal turgor. Normal color with no rashes, no lesions, and no evidence of cellulitis. MS/ Extremity: Pulses equal, no cyanosis. Neurovascular intact. Full, normal range of motion. Neuro: Awake and alert, GCS 15, oriented to person, place, time, and situation. Cranial nerves II-XII grossly intact. Motor strength 5/5 in all extremities. Sensory grossly intact. Cerebellar exam normal. Normal gait. Psych: Awake, alert, with orientation to person, place and time. Behavior, mood, and affect are within normal limits. 20:17 ENT: External ear(s): are unremarkable, Nose: is normal, Mouth: Lips: normal, Oral mucosa: normal, Gums: normal with healthy appearance, Tongue: is normal, abscess, is not appreciated, drooling, is not appreciated, Posterior pharynx: is normal, airway is patent, Dental exam: dental caries, that is mild, specifically in the lower right first molar (#30), Voice: is normal. Vital Signs: 18:47 BP 131 / 71; Pulse 76; Resp 16; Temp 98; Pulse Ox 99% ; Height 5 ft. 9 in. (175.26 cm); sv 20:15 BP 115 / 80; Pulse 75; Resp 17; Pulse Ox 99% ; ll1 MDM: 19:57 Patient medically screened. [facility] 20:00 Differential diagnosis: dental caries, gingivitis, dental abscess, pericoronitis, 7 aphthous ulcers, acute necrotizing ulcerative gingivitis, gingivostomatitis. Data reviewed: vital signs, nurses notes. 20:17 Data interpreted: Pulse oximetry: on room air is 99 %. Interpretation: normal. [facility] Counseling: I had a detailed discussion with the patient and/or guardian regarding: the historical points, exam findings, and any diagnostic results supporting the discharge/admit diagnosis, the need for outpatient follow up, for definitive care, a dentist, to return to the emergency department if symptoms worsen or persist or if there are any questions or concerns that arise at home. Administered Medications: No medications were administered Disposition: 09/12/19 20:07 Discharged to Home. Impression: Dental Pain. - Condition is Stable. - Discharge Instructions: Tooth Injuries, [id number]. - Prescriptions for Ibuprofen 800 mg Oral Tablet - take 1 tablet by ORAL route every 8 hours As needed take with food; 15 tablet. - Medication Reconciliation Form, Thank You Letter, Antibiotic Education, Prescription Opioid Use form. - Follow up: Private Physician; When: 2 - 3 days; Reason: Worsening of condition, Recheck today's complaints, Continuance of care, Re-evaluation by your physician. Follow up: Kg Vera DDS; When: 2 - 3 days; Reason: Worsening of condition, Recheck today's complaints. - Problem is chronic. - Symptoms have improved. Signatures: Orin Clayton RN RN Florence Spangler mw2 Beto Harley MD MD 7 Corrections: (The following items were deleted from the chart) 20:18 20:07 09/12/2019 20:07 Discharged to Home. Impression: Dental Pain. Condition is mw2 Stable. Forms are Medication Reconciliation Form, Thank You Letter, Antibiotic Education, Prescription Opioid Use. Follow up: Private Physician; When: 2 - 3 days; Reason: Worsening of condition, Recheck today's complaints, Continuance of care, Re-evaluation by your physician. Follow up: Kg Vera; When: 2 - 3 days; Reason: Worsening of condition, Recheck today's complaints. Problem is chronic. Symptoms have improved. mh7
--- NOTE | 2019-09-12 20:07 | ER ---
Nurse's Notes [facility] [place] [place] Name: Jonathan Rodriguez Age: 19 yrs Sex: Male : 2000 Arrival Date: 09/12/2019 Time: 18:37 Bed 12 Private MD: Diagnosis: Dental Pain Presentation: 09/11 18:45 Chief complaint: Patient states: Has had a broken tooth for a couple of years, a couple sv of days ago I tried to take the took out with a pair of pliers, was unable to take out the tooth completely and now the pain has increased. Coronavirus screen: Patient denies a cough. Patient denies shortness of breath or difficulty breathing. Patient denies measured and/or subjective temperature greater than 100.4F prior to today's visit. Patient denies travel on a cruise ship or to a country the [facility] currently lists as an affected area. Patient denies contact with known and/or suspected case of COVID-19. Patient instructed to continue to wear a mask when interacting with others. Patient moved to private room, placed in contact and droplet isolation with eye protection until further assessment. Ebola Screen: No symptoms or risks identified at this time. Risk Assessment: Do you want to hurt yourself or someone else? Patient reports no desire to harm self or others. Onset of symptoms was 2018. 18:45 Method Of Arrival: Ambulatory sv 18:47 Initial Sepsis Screen: Does the patient meet any 2 criteria? No. Patient's initial sv sepsis screen is negative. Does the patient have a suspected source of infection? No. Patient's initial sepsis screen is negative. 18:47 Acuity: BIANCA 4 sv Triage Assessment: 18:45 General: Appears in no apparent distress. uncomfortable, Behavior is calm, cooperative, sv appropriate for age. Pain: Complains of pain in mouth. Neuro: Level of Consciousness is awake, alert, obeys commands, Oriented to person, place, time, situation, Gait is steady. Respiratory: Respiratory effort is even, unlabored. 22:06 EENT: Reports pain in lower right first molar (#30). ll1 Historical: - Allergies: 18:46 cillin family; sv 18:46 PENICILLINS; sv - PSHx: 18:46 None; sv - Immunization history:: Adult Immunizations up to date. - Social history:: Smoking status: Patient reports the use of cigarette tobacco products, smokes one-half pack cigarettes per day. Screenin:00 Abuse screen: Denies threats or abuse. Nutritional screening: No deficits noted. ll1 Tuberculosis screening: No symptoms or risk factors identified. Fall Risk None identified. Total Lamar Fall Scale indicates No Risk (0-24 pts). Assessment: 20:00 General: Appears in no apparent distress. Behavior is calm, cooperative. Pain: ll1 Complains of pain in mouth. Neuro: No deficits noted. Cardiovascular: No deficits noted. Respiratory: No deficits noted. EENT: Reports pain in lower right first molar (#30). Vital Signs: 18:47 BP 131 / 71; Pulse 76; Resp 16; Temp 98; Pulse Ox 99% ; Height 5 ft. 9 in. (175.26 cm); sv 20:15 BP 115 / 80; Pulse 75; Resp 17; Pulse Ox 99% ; ll1 ED Course: 18:37 Patient arrived in ED. fj1 18:45 Arm band placed on. sv 18:50 Triage completed. sv 19:23 Dennise Sr, MARIPOSA is Primary Nurse. 1 19:29 Beto Harley MD is Attending Physician. 7 20:00 Patient has correct armband on for positive identification. Bed in low position. Call 1 light in reach. Side rails up X 1. 20:00 No provider procedures requiring assistance completed. Patient did not have IV access ll during this emergency room visit. 20:05 Kg Vera DDS is Referral Physician. [facility] Administered Medications: No medications were administered Outcome: 20:07 Discharge ordered by . [facility] 20:18 Patient left the ED. 2 22:06 Discharged to home ambulatory. 1 22:06 Condition: stable 22:06 Discharge instructions given to patient, Instructed on discharge instructions, follow up and referral plans. medication usage, Demonstrated understanding of instructions, follow-up care, medications, Prescriptions given X 1. Signatures: Orin Clayton RN RN Florence Harrison 2 Abdullahi Ruiz 1 Dennise Sr RN RN [facility] Beto Harley MD MD [facility]
[2019-09-12 20:24] VITALS: BP 131/71; TEMP 98; O2SAT 99
== END 2019-09-12 20:18 | disposition home or self-care (01) ==
LOC: ER 18:31
DX: K02.9 Dental caries, unspecified (principal); F17.210 Nicotine dependence, cigarettes, uncomplicated; Z88.0 Allergy status to penicillin
CPT/HCPCS: 99282

== ENCOUNTER 2020-01-04 16:24 | Emergency (ER) | payer SELFPAY ==
--- OUTSIDE RECORDS SUMMARY | 2020-01-04 16:35 | XMS REPORT | Summary of Care ---
:2000 Author Organization [facility] - Health Address [address] [place] [id number] Care Team Providers Name Role Phone Pcp, Does Not Have A Primary Care Provider Reason for Visit Reason Comments Other Suicidal ideations Auth/Cert Status Reason Specialty Diagnoses / Referred By Referred To Procedures Contact Contact Emergency Medicine [facility] Em [facility]ency Dept [address] [place] [address] Fax: Encounter Details Date Type Department Care Team Description 12/27/2019 Emergency ADC-Emergency Mustapha Garcia Depressio n with suicidal ideation (Primary Dx); Department Polysubstance abuse [id number] [place] [address] [place], [place] [phone] [phone] Allergies Active Allergy Reactions Severity Noted Date Comments Amoxicillin Anaphylaxis 10/08/2018 Penicillin Anaphylaxis 10/08/2018 documented as of this encounter (statuses as of 12/27/2019) Medications Medication Sig Dispensed Refills Start Date End Date Status traMADol (ULTRAM) 50 Take 1 tablet by 30 tablet 0 10/08/2018 Active mg tabletIndications: mouth every 6 Injury by nail, (six) hours as initial encounter, needed for Pain Puncture wound of (scale 7-10). 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 documented as of this encounter Last Filed Vital Signs Vital Sign Reading Time Taken Comments Blood Pressure 141/72 12/27/2019 5:26 AM FILM TECHNICIAN Pulse 69 12/27/2019 5:26 AM FILM TECHNICIAN Temperature 36.9 C (98.5 F) 12/27/2019 5:26 AM FILM TECHNICIAN Respiratory Rate 16 12/27/2019 5:26 AM FILM TECHNICIAN Oxygen Saturation - - Inhaled Oxygen Concentration - - Weight 79.4 kg (175 lb) 12/27/2019 5:26 AM FILM TECHNICIAN Height 177.8 cm (5' 10") 12/27/2019 5:26 AM FILM TECHNICIAN Body Mass Index 25.11 12/27/2019 5:26 AM FILM TECHNICIAN documented in this encounter ED Notes Elizabeth Krishnamurthy RN - 12/27/2019 5:19 AM CSTPatient states to Dr. Garcia that his mother brought him because he tried to hang himself with an extension cord earlier tonight. Patient stated he is depressed, has had previous attempts in the past. documented in this encounter Miscellaneous Notes ED Nurse Note - Sarah Martins RN - 12/27/2019 5:43 AM CSTPt's mom asking to speak to staff about son's ideation. Pt agrees that POC can be discussed with his mother. As this CN was talking to the mother in GR about ED processes, Pt got up from treatment room and left. Staff followed to ED front doors. Mother talked to patient at the vehicle for a coupleminutes, then got in vehicle to leave. This CN approached the vehicle and reassured patient and mother that we were concerned for his well being and recommended that he get psychiatric care urgently if he wasn't willing to stay and allow us to maintain his safety and treat him. Mother agreed and drove off with patient in passenger seat. D Nurse Note - Elizabeth Krishnamurthy RN - 12/27/2019 5:31 AM CSTPt got up and walked out of the ED, Dr. Garcia in hallway witnessed and we both followed patient. Notified charge nurse that was talking to mother and mother and Sarah The charge nurse followed. Patient got in car with mother. Mother stated she was going to take him, Sarah talking with mother aboutgetting treatment. TECHNICIAN Nursing Note - Elizabeth Krishnamurthy RN - 12/27/2019 5:25 [address]STDr. Garcia in room during triage documented in this encounter Plan of Treatment Name Type Priority Associated Diagnoses Order S chedule CBC WITH DIFF LAB Routine Depression with ONCE for 1 Occurrences suicidal ideatio n starting 12/27/2019 Polysubstance abuse until COMP. METABOLIC PANEL LAB Routine Depression with ONC E for 1 Occurrences (98583) suicidal ideatio n starting 12/27/2019 Polysubstance abuse until URINALYSIS LAB Routine Depression with ONCE for 1 O ccurrences suicidal ideatio n starting 12/27/2019 Polysubstance abuse until ADC / LCC - DRUG SCREEN LAB Routine Depression with O NCE for 1 Occurrences TRIAGE suicidal ideatio n starting 12/27/2019 Polysubstance abuse until ETHANOL LAB Routine Depression with ONCE for 1 O ccurrences suicidal ideatio n starting 12/27/2019 Polysubstance abuse until ACETAMINOPHEN LAB Routine Depression with ONCE for 1 Occurrences suicidal ideatio n starting 12/27/2019 Polysubstance abuse until SALICYLATE LAB Routine Depression with ONCE for 1 O ccurrences suicidal ideatio n starting 12/27/2019 Polysubstance abuse until COVID-19 (ID NOW RAPID LAB Routine Depression with ON CE for 1 Occurrences TESTING) suicidal ideatio n starting 12/27/2019 Polysubstance abuse until Health Maintenance Due Date Last Done Comments VARICELLA VACCINES (1 of 2 - 1999 2-dose childhood series) MENINGOCOCCAL B VACCINES (1 of 2 - 2008 Risk Bexsero 2-dose series) HPV VACCINES (1 - Male 2-dose 2009 series) Depression Screening 2010 WELL CARE VISIT: 12-21 YEARS 2010 (yearly) DTaP,Tdap,and Td Vaccines (1 - 2017 10/08/2018 Tdap) INFLUENZA VACCINE (#1) 2019 MENINGOCOCCAL VACCINE Aged Out No longer eligible based on patient's age to complete this topic PNEUMOCOCCAL 0-64 YEARS COMBINED Aged Out No longer eligible based on SERIES patient's age to complete this topic documented as of this encounter Results Not on filedocumented in this encounter Visit Diagnoses Diagnosis Depression with suicidal ideation - Prim eitan Polysubstance abuse Other, mixed, or unspecified nondependen t drug abuse, unspecified documented in this encounter Additional Health Concerns Infection Onset Date Last Indicated Resolved Time COVID-19 Rule Out 12/27/2019 12/27/2019 documented as of this encounter
--- OUTSIDE RECORDS SUMMARY | 2020-01-04 16:35 | XMS REPORT | Continuity of Care Document ---
:2000 Author Organization [facility] t Address [address] [place] [address] Care Team Providers Name Role Phone Jose AGUILAR S Attending Clinician Luis Tejada NP Attending Clinician Doctor Unassigned, Name Attending Clinician Unavailable Singer FORMAN Attending Clinician Problems This patient has no known problems. Allergies, Adverse Reactions, Alerts This patient has no known allergies or adverse reactions. Medications This patient has no known medications. Procedures This patient has no known procedures. Encounters Start End Encounter Admission Attending Care Care Encounter Source Date/Time Date/Time Type Type Clinicians Facility Department ID 2019-12-27 2019-12-27 Emergency [facility] [id number] 05:53:00 05:54:00 Mustapha Mota [id number] [place] [id number] [place] [address] [id number] 2019-03-24 2019-03-24 Emergency [place] [id number] 17:40:53 21:05:00 Yoly Mota [id number] [place] [id number] [place] [address] [id number] 2019-03-24 2019-03-24 Orders Doctor POLO [id number] 00:00:00 00:00:00 Only UnassBEVERLY linares [id number] [place] [facility] [id number] 2018-10-08 2018-10-08 Emergency [facility] [id number] 11:13:54 12:49:00 Mina Mota [id number] [place] [id number] [place] [id number] Results This patient has no known results.
[2020-01-04] MEDS ORDERED: HYDROCODONE/APAP 5/325 MG TAB ONE (17:06)
--- NOTE | 2020-01-04 17:40 | ER ---
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 Reports pain on R hand, unable to move 5th digit of R hand, abrasions on R hand. Coronavirus screen: Client denies travel out of the [place] in the last 14 days. At this time, the client does not indicate any symptoms associated with coronavirus-19. Ebola Screen: Patient negative for fever greater than or equal to 101.5 degrees Fahrenheit, and additional compatible Ebola Virus Disease symptoms Patient denies exposure to infectious person. Patient denies travel to an Ebola-affected area in the 21 days before illness onset. No symptoms or risks identified at this time. Initial Sepsis Screen: Does the patient meet any 2 criteria? No. Patient's initial sepsis screen is negative. Does the patient have a suspected source of infection? No. Patient's initial sepsis screen is negative. Risk Assessment: Do you want to hurt yourself or someone else? Patient reports no desire to harm self or others. Onset of symptoms was January 04, 2020. 16:28 Method Of Arrival: Ambulatory ca1 16:28 Acuity: BIANCA 4 ca1 Historical: - Allergies: 16:32 cillin family; ca1 16:32 PENICILLINS; ca1 16:32 Amoxicillin; ca1 - Home Meds: 16:32 Atarax Oral [Active]; Seroquel Oral [Active]; ca1 - PMHx: 16:32 Anxiety; Bipolar disorder; ca1 - PSHx: 16:32 None; ca1 - Immunization history:: Adult Immunizations up to date, Flu vaccine is up to date. - Social history:: Smoking status: Patient reports the use of cigarette tobacco products, smokes two packs cigarettes per day. Screenin:35 Abuse screen: Denies threats or abuse. Nutritional screening: No deficits noted. tw2 Tuberculosis screening: No symptoms or risk factors identified. Fall Risk None identified. Assessment: 16:40 General: Appears in no apparent distress. Behavior is calm, cooperative, appropriate tw2 for age. Pain: Complains of pain in right hand. Neuro: Level of Consciousness is awake, alert, obeys commands, Oriented to person, place, time, situation. Cardiovascular: Patient's skin is warm and dry. Respiratory: Airway is patent Respiratory effort is even, unlabored, Respiratory pattern is regular, symmetrical. GI: No signs and/or symptoms were reported involving the gastrointestinal system. : No signs and/or symptoms were reported regarding the genitourinary system. EENT: No signs and/or symptoms were reported regarding the EENT system. Derm: abrasion noted to right hand, no bleeding noted. Musculoskeletal: Circulation, motion, and sensation intact. Swelling present in right hand. 17:00 Reassessment: Pt sitting in bed with ice pack to injury, significant at bedside. jl7 17:05 Reassessment: xray at bedside at this time. tw2 17:54 Reassessment: Patient appears in no apparent distress at this time. No changes from tw2 previously documented assessment. Patient and/or family updated on plan of care and expected duration. Pain level reassessed. Patient is alert, oriented x 3, equal unlabored respirations, skin warm/dry/pink. Vital Signs: 16:28 BP 125 / 86; Pulse 86; Resp 16 S; Temp 98.3(TE); Pulse Ox 99% on R/A; Weight 77.11 kg ca1 (R); Height 5 ft. 9 in. (175.26 cm) (R); Pain 3/10; 17:54 BP 116 / 67; Pulse 62; Resp 17; Pulse Ox 99% on R/A; tw2 16:28 Body Mass Index 25.10 (77.11 kg, 175.26 cm) ca1 ED Course: 16:24 Patient arrived in ED. as 16:30 Triage completed. ca1 16:32 Isabel Dave FNP-C is PHCP. snw 16:32 Ramez Lopez MD is Attending Physician. snw 16:32 Arm band placed on right wrist. ca1 16:35 Ashanti Pryor RN is Primary Nurse. tw2 16:35 Bed in low position. Call light in reach. tw2 17:17 Hand Right 3 View XRAY In Process Unspecified. EDMS 17:27 Pulse ox on. NIBP on. mh5 17:27 Wound care: to abrasion. mh5 17:28 Wound care: located on right hand and dorsal aspect of proximal phalanx of right little mh5 finger was cleaned with Hibiclens, ice pack applied. Patient tolerated well. 17:36 Gelacio Webb MD is Referral Physician. snw 17:52 Orthoglass splint: Ulnar gutter/Boxer splint applied on right forearm. mh5 17:52 Sling applied to right arm. mh5 17:54 No provider procedures requiring assistance completed. Patient did not have IV access tw2 during this emergency room visit. Administered Medications: 16:59 Drug: [place] 5 mg-325 mg 1 tabs Route: PO; jl7 17:54 Follow up: Response: No adverse reaction; Pain is decreased; RASS: Alert and Calm (0) tw2 Outcome: 17:40 Discharge ordered by . snw 17:54 Discharged to home ambulatory, with significant other. tw2 17:54 Condition: stable 17:54 Discharge instructions given to patient, significant other, Instructed on discharge instructions, follow up and referral plans. no drinking with medication, no driving heavy equipment, medication usage, safety practices, CMS checks Demonstrated understanding of instructions, follow-up care, medications, splint care, Prescriptions given X 2. 17:55 Patient left the ED. tw2 Signatures: Dispatcher [employer] EDIsabel Garzon, SPECIAL EDUCATION INSTRUCTOR-C SPECIAL EDUCATION INSTRUCTOR-Csnw Audelia Alves Tara, RN RN tw2 Flor Alves [facility] Kenny Forte RN RN jl7 Juana Grimm RN RN ca1
--- NOTE | 2020-01-04 17:41 | EDPHYS ---
Physician Documentation [facility] Name: Jonathan Rodriguez Age: 19 yrs Sex: Male : 2000 Arrival Date: 01/04/2020 Time: 16:24 Bed 16 Private MD: ED Physician Ramez Lopez HPI: 01/03 16:47 This 19 yrs old Male presents to ER via Ambulatory with complaints of Hand snw Injury. 16:47 The patient or guardian reports decreased range of motion, deformity, pain, swelling, snw tenderness. The complaints affect the right hand diffusely, right hand and dorsal aspect of proximal phalanx of right little finger and dorsal aspect of proximal phalanx of right ring finger. Context: The problem was sustained outdoors, resulted from a fall, while skating. Onset: The symptoms/episode began/occurred suddenly, just prior to arrival. Associated signs and symptoms: Pertinent positives: hematoma over 5th metacarpal. Severity of symptoms: At their worst the symptoms were moderate. The patient has not experienced similar symptoms in the past. It is unknown whether or not the patient has recently seen a physician. no LOC or head injury. Historical: - Allergies: 16:32 cillin family; ca1 16:32 PENICILLINS; ca1 16:32 Amoxicillin; ca1 - Home Meds: 16:32 Atarax Oral [Active]; Seroquel Oral [Active]; ca1 - PMHx: 16:32 Anxiety; Bipolar disorder; ca1 - PSHx: 16:32 None; ca1 - Immunization history:: Adult Immunizations up to date, Flu vaccine is up to date. - Social history:: Smoking status: Patient reports the use of cigarette tobacco products, smokes two packs cigarettes per day. ROS: 16:46 Constitutional: Negative for fever, chills, and weight loss, Eyes: Negative for injury, snw pain, redness, and discharge, ENT: Negative for injury, pain, and discharge, Neck: Negative for injury, pain, and swelling, Cardiovascular: Negative for chest pain, palpitations, and edema, Respiratory: Negative for shortness of breath, cough, wheezing, and pleuritic chest pain, Abdomen/GI: Negative for abdominal pain, nausea, vomiting, diarrhea, and constipation, Back: Negative for injury and pain, : Negative for injury, bleeding, discharge, and swelling, Skin: Negative for injury, rash, and discoloration, Neuro: Negative for headache, weakness, numbness, tingling, and seizure, Psych: Negative for depression, anxiety, suicide ideation, homicidal ideation, and hallucinations. 16:46 MS/extremity: Positive for injury or acute deformity, decreased range of motion, deformity, swelling, tenderness, of the right hand. Exam: 16:43 Constitutional: This is a well developed, well nourished patient who is awake, alert, snw and in no acute distress. Head/Face: Normocephalic, atraumatic. Eyes: Pupils equal round and reactive to light, extra-ocular motions intact. Lids and lashes normal. Conjunctiva and sclera are non-icteric and not injected. Cornea within normal limits. Periorbital areas with no swelling, redness, or edema. ENT: Nares patent. No nasal discharge, no septal abnormalities noted. Tympanic membranes are normal and external auditory canals are clear. Oropharynx with no redness, swelling, or masses, exudates, or evidence of obstruction, uvula midline. Mucous membranes moist. Neck: Trachea midline, no thyromegaly or masses palpated, and no cervical lymphadenopathy. Supple, full range of motion without nuchal rigidity, or vertebral point tenderness. No Meningismus. Chest/axilla: Normal chest wall appearance and motion. Nontender with no deformity. No lesions are appreciated. Cardiovascular: Regular rate and rhythm with a normal S1 and S2. No gallops, murmurs, or rubs. Normal PMI, no JVD. No pulse deficits. Respiratory: Lungs have equal breath sounds bilaterally, clear to auscultation and percussion. No rales, rhonchi or wheezes noted. No increased work of breathing, no retractions or nasal flaring. Abdomen/GI: Soft, non-tender, with normal bowel sounds. No distension or tympany. No guarding or rebound. No evidence of tenderness throughout. Back: No spinal tenderness. No costovertebral tenderness. Full range of motion. Neuro: Awake and alert, GCS 15, oriented to person, place, time, and situation. Cranial nerves II-XII grossly intact. Motor strength 5/5 in all extremities. Sensory grossly intact. Cerebellar exam normal. Normal gait. Psych: Awake, alert, with orientation to person, place and time. Behavior, mood, and affect are within normal limits. 16:43 Skin: Appearance: normal except for affected area, injury, abrasion(s), small abrasion noted, of the dorsal aspect of proximal phalanx of right index finger, dorsal aspect of proximal phalanx of right middle finger, dorsal aspect of proximal phalanx of right ring finger and dorsal aspect of proximal phalanx of right little finger, contusion(s), that are deep, of the dorsal aspect of proximal phalanx of right ring finger and dorsal aspect of proximal phalanx of right little finger. Vital Signs: 16:28 BP 125 / 86; Pulse 86; Resp 16 S; Temp 98.3(TE); Pulse Ox 99% on R/A; Weight 77.11 kg ca1 (R); Height 5 ft. 9 in. (175.26 cm) (R); Pain 3/10; 17:54 BP 116 / 67; Pulse 62; Resp 17; Pulse Ox 99% on R/A; tw2 16:28 Body Mass Index 25.10 (77.11 kg, 175.26 cm) ca1 MDM: 16:36 Patient medically screened. snw 17:54 Data reviewed: vital signs, nurses notes. Data interpreted: Pulse oximetry: on room air snw is 99 %. Interpretation: normal. Response to treatment: the patient's symptoms have mildly improved after treatment. Special discussion: Based on the history and exam findings, there is no indication for further emergent testing or inpatient evaluation. I discussed with the patient/guardian the need to see the orthopedic surgeon for further evaluation of the symptoms. 01/03 16:33 Order name: Hand Right 3 View XRAY snw 01/03 16:42 Order name: Wound Care; Complete Time: 17:27 snw 01/03 16:42 Order name: Ice pack; Complete Time: 16:44 snw 01/03 17:43 Order name: Ulnar Gutter splint; Complete Time: 17:46 snw 01/03 17:43 Order name: Sling; Complete Time: 17:52 snw Administered Medications: 16:59 Drug: Campbell 5 mg-325 mg 1 tabs Route: PO; jl7 17:54 Follow up: Response: No adverse reaction; Pain is decreased; RASS: Alert and Calm (0) tw2 Disposition: 11/10 06:54 Co-signature as Attending Physician, Ramez Lopez MD I agree with the assessment and kdr plan of care. Disposition: 01/04/20 17:40 Discharged to Home. Impression: Fall from skateboard, Displaced frature of distal 5th metacarpal, Abrasion of hand. - Condition is Stable. - Discharge Instructions: Abrasion, Cast or Splint Care, Adult, Metacarpal Fracture, Fall Prevention in the Home, RICE for Routine Care of Injuries, How to Use a Sling. - Prescriptions for Mobic 7.5 mg Oral Tablet - take 1 tablet by ORAL route once daily take with food; 20 tablet. Tylenol- Codeine #3 300-30 mg Oral Tablet - take 2 tablets by ORAL route every 6 hours As needed; 14 tablet. - Medication Reconciliation Form, Thank You Letter, Antibiotic Education, Prescription Opioid Use form. - Follow up: Emergency Department; When: As needed; Reason: Worsening of condition. Follow up: Gelacio Webb MD; When: 1 - 2 days; Reason: Recheck today's complaints, Continuance of care. Signatures: Dispatcher [employer] EDMS Ramez Lopez MD MD kdr Isabel Dave, [employer] ENGINEER-C [employer]EARCH ENGINEER-Csnw Ashanti Pryor RN RN tw2 Kenny Forte RN RN jl7 Juana Grimm RN RN ca1 Corrections: (The following items were deleted from the chart) 01/03 17:41 17:40 01/04/2020 17:40 Discharged to Home. Impression: Fall from skateboard; Displaced snw frature of distal 5th metacarpal. Condition is Stable. Forms are Medication Reconciliation Form, Thank You Letter, Antibiotic Education, Prescription Opioid Use. Follow up: Emergency Department; When: As needed; Reason: Worsening of condition. Follow up: Dr. Gelacio Webb; When: 1 - 2 days; Reason: Recheck today's complaints, Continuance of care. snw 17:55 17:41 01/04/2020 17:40 Discharged to Home. Impression: Fall from skateboard; Displaced tw2 frature of distal 5th metacarpal; Abrasion of hand. Condition is Stable. Forms are Medication Reconciliation Form, Thank You Letter, Antibiotic Education, Prescription Opioid Use. Follow up: Emergency Department; When: As needed; Reason: Worsening of condition. Follow up: Dr. Gelacio Webb; When: 1 - 2 days; Reason: Recheck today's complaints, Continuance of care. snw
--- NOTE | 2020-01-04 17:56 | RAD REPORT ---
EXAM DESCRIPTION: RAD - Hand Right 3 View - 01/04/2020 5:17 pm CLINICAL HISTORY: PAIN COMPARISON: No comparisons FINDINGS: Fracture of the distal right fifth metacarpal present at the shaft head junction. There is a 90 degree ventral angulation of the distal fracture fragment and displacement. Fifth proximal phal anx maintains positioning to this dislocated fracture fragment. No other fracture changes seen. No pathologic bone process. No foreign body or significant soft tissu e abnormality. IMPRESSION: Fracture dislocation of the distal fifth metacarpal head.
[2020-01-04 23:52] VITALS: TEMP 98.3; O2SAT 99
[2020-01-04 23:55] VITALS: BP 116/67
== END 2020-01-04 17:55 | disposition home or self-care (01) ==
LOC: ER 16:24
PROC: 2W3JX1Z Immobilization of Right Finger using Splint (ICD-10-PCS; principal; 2020-01-04)
DX: S62.306A Unspecified fracture of fifth metacarpal bone, right hand, initial encounter for closed fracture (principal); V00.131A Fall from skateboard, initial encounter; Y93.9 Activity, unspecified; Y92.9 Unspecified place or not applicable; Z88.0 Allergy status to penicillin; Z88.1 Allergy status to other antibiotic agents; F17.210 Nicotine dependence, cigarettes, uncomplicated
CPT/HCPCS: 99284